=== PATIENT | male | born 1945 | race Caucasian/White ===

== ENCOUNTER 2016-07-10 11:27 | Outpatient (CLI) | payer MEDICARE | END 2016-07-10 11:30 | LOC: CARD 11:27 | PROVIDERS: ATTEND Internal Medicine Cardiovascular Disease | DX: I50.9 Heart failure, unspecified (principal) | CPT/HCPCS: G0463 ==

== ENCOUNTER 2016-09-19 01:21 | Emergency (ER) | payer MEDICARE, OTHER ==
[2016-09-19] MEDS ORDERED: CYCLOBENZAPRINE HCL 5 MG TABLET PO ONE (01:48)
[2016-09-19 01:50] VITALS: BP 161/95
--- NOTE | 2016-09-19 01:53 | ED Physician Documentation ---
General Adult - HISTORIAN Historian: patient - HPI Stated Complaint: BACK PAIN Chief Complaint: General Adult Additional Information: R low back pain x 10 days, after hoeing garden. Indicates right SI joint as site of pain. Has been taking 200-400 mg of ibuprofen at a time, but not more than 1200 mg/day. No loss bowel or bladder control, had funny feeling right lateral thigh last evening, gone now. Fells better with lying down. - ROS CONST: no problems NEURO/PSYCH: denies: difficulty walking - PAST HX Past History: other (cardiomyopathy) Allergies/Adverse Reactions: Allergies Allergy/AdvReac Type Severity Reaction Status Date / Time No Known Drug Allergies Allergy Verified 09/19/16 01:30 Home Medications: Ambulatory Orders Medication Instructions Recorded Aspirin [Aspir 81] 81 mg PO DAILY u2 10/31/15 Carvedilol [Coreg] 12.5 mg PO DAILY u2 10/31/15 Lisinopril 20Mg [Prinivil] 20 mg PO DAILY u2 10/31/15 Spironolactone 25 mg PO BID u2 10/31/15 Cyclobenzaprine HCl [Flexeril] 10 mg PO HS #14 tablet 09/19/16 traMADol HCL [Ultram] 50 mg PO Q6H PRN #15 tablet 09/19/16 - SOCIAL HX Smoking History: non-smoker Alcohol Use: none Drug Use: none - FAMILY HX Family History: No - VITAL SIGNS Vital Signs: Vital Signs Temp Pulse Resp BP Pulse Ox 97.6 F 62 22 161/95 99 09/19/16 01:48 09/19/16 01:48 09/19/16 01:48 09/19/16 01:48 09/19/16 01:48 - REVIEWED ASSESSMENTS Nursing Assessment Reviewed: Yes Vitals Reviewed: Yes ED Results Lab/Radiology - Orders Orders: ED Orders Category Date Time Status Cyclobenzaprine HCl [Flexeril] Med 09/19/16 01:48 Once 10 mg PO NOW ONE General Adult Physical Exam - PHYSICAL EXAM GENERAL APPEARANCE: mild distress (walks about room) EENT: eye inspection normal, ENT inspection normal NECK: normal inspection RESPIRATORY: no resp distress, chest non-tender, breath sounds normal CVS: reg rate & rhythm, heart sounds normal RECTAL: deferred BACK: normal inspection, no CVA tenderness, other (no vertebral tenderness) SKIN: warm/dry, normal color EXTREMITIES: normal range of motion (gait), no evidence of injury NEURO: CN's nml as tested, motor nml, sensation nml, other (reflexes 2+ throughout. Can dorsi flex 1st toes against resistance) Discharge Clincal Impression: Back pain Qualifiers: Back pain location: low back pain Chronicity: acute Back pain laterality: right Sciatica presence: unspecified whether sciatica present Qualified Code(s) : M54.5 - Low back pain Prescriptions: Cyclobenzaprine HCl [Flexeril] 10 mg PO HS #14 tablet traMADol HCL [Ultram] 50 mg PO Q6H PRN #15 tablet PRN Reason: Pain Referrals: Emmanuel Collado MD [Primary Care Provider] - 2 Days Home Medications: Ambulatory Orders Aspirin [Aspir 81] 81 mg PO DAILY u2 10/31/15 Carvedilol [Coreg] 12.5 mg PO DAILY u2 10/31/15 Lisinopril 20Mg [Prinivil] 20 mg PO DAILY u2 10/31/15 Spironolactone 25 mg PO BID u2 10/31/15 Cyclobenzaprine HCl [Flexeril] 10 mg PO HS #14 tablet 09/19/16 traMADol HCL [Ultram] 50 mg PO Q6H PRN #15 tablet 09/19/16 Condition: Good Disposition: 01 HOME, SELF-CARE Decision to Admit: NO Decision Time: 01:56
== END 2016-09-19 01:57 | disposition home or self-care (01) ==
LOC: ED 01:21
DX: M54.5 Low back pain (principal)
CPT/HCPCS: 99283

== ENCOUNTER 2016-09-21 14:01 | Outpatient (CLI) | payer MEDICARE ==
--- NOTE | 2016-09-22 05:56 | Diagnostic Imaging Report ---
NEMO JADE~ [facility] [address] [facility]. [address] [place] [address]. [id number] ~ ~ ~ ~ Report Submission Date: September 21, 2016 4:13:23 PM CDT Patient ~ Study Name: SHANDRA BLACKWELL ~ Date: September 21, 2016 2:21:16 PM CDT ~ Modality Type: CR Gender: M ~ Description: SPINE : 49 ~ Institution: [facility] Physician: NEMO JADE ~ ~ ~ ~ Lumbar spine 3 views Clinical history: Pain Technique AP lateral and coned down lumbosacral junction Findings: There are 5 lumbar vertebra with a mild levoscoliosis. Disc space narrowing is present at L4/L5 and L5/S1. There is lower lumbar spine facet osteoarthritis. Retrolisthesis of L3 on L4 is present and there is anterolistheses of L4 on L5. There is no pedicle destruction or fracture. There is no spondylolysis. Spurs arise from multiple and tear vertebral bodies Impression: Lumbar spondylosis greatest and L4/L5 and L5/S1 Mild levoscoliosis. No acute pathology ~ Electronically signed on September 21, 2016 4:13:23 PM CDT by: Lebron VINCENT
== END 2016-09-21 14:02 ==
LOC: RAD 14:01
PROVIDERS: ATTEND Family Medicine
DX: M54.5 Low back pain (principal)
CPT/HCPCS: 72100

== ENCOUNTER 2016-09-23 09:27 | Outpatient (CLI) | payer MEDICARE ==
--- NOTE | 2016-09-23 11:00 | Diagnostic Imaging Report ---
[facility] [address] [facility] [address] Report Submission Date: September 23, 2016 10:56:16 AM CDT Patient Study Name: RUSTY BLACKWELL Date: September 23, 2016 9:52:13 AM CDT Modality Type: MR Gender: M Description: MRI L SPINE W/O CONTRAST : 49 Institution: [facility] Physician: KALIE NEMO - OP MRI of the lumbar spine Clinical history: Low back pain for 2 weeks with right lower extremity radiculopathy Studies performed routinely using a sagittal T1, T2 and STIR images followed by axial T1 and T2 weighted images, study demonstrate the following: T12/L1 disc level: 1 cm curvilinear tear of the fibrous annulus and the 7:00 position . L1/L2 disc level: 2 mm generalized bulging disc . L2/L3 disc level: Right parasagittal herniated disc with extruded disc fragment inferiorly resulted in narrowing of the right lateral recess and the right neural foramina and 3 mm generalized bulging disc. L3/L4 disc level: 4 mm generalized bulging disc with facet and ligamentum flavum hypertrophy resulting in mild spinal stenosis at L3/L4 . L4/L5 disc level: Normal. L5/S1 disc level: 4 mm generalized bulging disc. 1 cm neural cyst at the S1 on the left Grade I 3 mm anterior spondylolisthesis of L4 over L3 and L5. Impression: Multilevel disc disease process as described above and mostly pronounced L2/L3 on the right side with most likely right parasagittal and trnasforaminal herniated disc extruded disc fragment. Certainly tumor is less likely , would be advisable today with sagittal and axial T1 postcontrast Electronically signed on September 23, 2016 10:56:16 AM CDT by: Rusty VINCENT
== END 2016-09-23 09:35 | disposition home or self-care (01) ==
LOC: RAD 09:27
PROVIDERS: ATTEND Family Medicine
DX: M54.5 Low back pain (principal)
CPT/HCPCS: 72148

== ENCOUNTER 2017-01-01 14:06 | Outpatient (CLI) | payer MEDICARE ==
[2017-01-01 16:31] LABS: eGFR (African) > 60; eGFR (Non-African) > 60
== END 2017-01-01 14:07 ==
LOC: CARD 14:06
PROVIDERS: ATTEND Internal Medicine Cardiovascular Disease
DX: I42.8 Other cardiomyopathies (principal); I77.819 Aortic ectasia, unspecified site; Z79.899 Other long term (current) drug therapy
CPT/HCPCS: 36415; 80048; G0463

== ENCOUNTER 2017-04-08 07:58 | Outpatient (CLI) | payer MEDICARE ==
[2017-04-08 08:21] LABS: BASOPHILS % 0.8 (0.0-1.5); MEAN CORPUSCULAR HEMOGLOBIN 30.9 pg (28.0-34.0); MEAN CORPUSCULAR VOLUME 93.7 fl (80.0-100.0); MONOCYTES % 6.2 % (0.0-11.0); NEUTROPHILS # 1.8 # k/uL (1.4-7.7)
[2017-04-08 08:52] LABS: eGFR (African) > 60; eGFR (Non-African) > 60
== END 2017-04-08 08:00 ==
LOC: LAB 07:58
PROVIDERS: ATTEND Family Medicine
DX: E78.00 Pure hypercholesterolemia, unspecified (principal); I10 Essential (primary) hypertension; N40.1 Benign prostatic hyperplasia with lower urinary tract symptoms
CPT/HCPCS: 36415; 80053; 80061; 84153; 85025

== ENCOUNTER 2017-04-15 11:14 | Day surgery (SDC) | payer MEDICARE ==
[~2017-04-15 11:14] MED LIST: LACTATED RINGERS 1,000 ML IV.SOLN IV ONE; LIDOCAINE HCL/PF 2% 100 MG/5 ML VIAL IJ ONE; PROPOFOL 500 MG/50 ML VIAL IV ONE; SALINE FLUSH 10 ML DISP.SYRIN IVF ONE
--- NOTE | 2017-04-15 14:09 | GI Report ---
REFERRING PHYSICIAN: Dr. Emmanuel Collado APPRAISER ART: Kam Savage MD PROCEDURE MEDICATION: Propofol as per anesthesia. INDICATIONS: This 71-year-old man is referred for a screening. This is his first colonoscopy. He denies changes in bowel habits or blood in the stool. PROCEDURE PERFORMED: Colonoscopy and polypectomy. DESCRIPTION OF PROCEDURE: An Olympus video colonoscope was advanced into the rectum and slowly advanced all the way to the cecum. A slightly atonic redundant colon. The appendiceal orifice and ileocecal valve were normal. On slow withdrawal, the cecum, ascending colon, and transverse colon had no obvious intraluminal lesions noted. The descending colon had some redundancy. Sigmoid colon had a few diverticula. There was about a 3 to 4 mm polyp removed in the sigmoid at 20 cm. Retroflexion of the rectum was normal. Patient tolerated the procedure well. FINDINGS: 1. A 3 to 4 mm polyp in the sigmoid removed. 2. An atonic redundant colon. 3. Diverticular disease. RECOMMENDATIONS: 1. A high-fiber diet. 2. I recommend re-looking at his colon in 5 years unless there is some interval change. cc: Dr. Emmanuel VINCENT
== END 2017-04-15 11:15 ==
LOC: OPSURG 11:14
PROVIDERS: ATTEND Internal Medicine Gastroenterology
DX: Z12.11 Encounter for screening for malignant neoplasm of colon (principal); D12.5 Benign neoplasm of sigmoid colon; D12.7 Benign neoplasm of rectosigmoid junction; K57.30 Diverticulosis of large intestine without perforation or abscess without bleeding
CPT/HCPCS: 45385; 88305; 93005; J2001; J2704; J7120; S1016

== ENCOUNTER 2017-08-30 11:34 | Outpatient (CLI) | payer MEDICARE, OTHER | END 2017-08-30 11:35 | LOC: LAB 11:34 | PROVIDERS: ATTEND Family Medicine | DX: I77.6 Arteritis, unspecified (principal); Z13.820 Encounter for screening for osteoporosis | CPT/HCPCS: 36415; 85651; 86038 ==

== ENCOUNTER 2017-09-04 11:45 | Outpatient (CLI) | payer MEDICARE, OTHER | END 2017-09-04 11:46 | LOC: RAD 11:45 | PROVIDERS: ATTEND Family Medicine | DX: M85.88 Other specified disorders of bone density and structure, other site (principal); M85.9 Disorder of bone density and structure, unspecified; Z13.820 Encounter for screening for osteoporosis | CPT/HCPCS: 77080 ==

== ENCOUNTER 2017-12-31 14:36 | Outpatient (CLI) | payer MEDICARE, OTHER | END 2017-12-31 14:38 | LOC: CARD 14:36 | PROVIDERS: ATTEND Internal Medicine Cardiovascular Disease | DX: I42.9 Cardiomyopathy, unspecified (principal); Z79.899 Other long term (current) drug therapy; I77.810 Thoracic aortic ectasia | CPT/HCPCS: G0463 ==

== ENCOUNTER 2018-07-30 15:16 | Outpatient (CLI) | payer MEDICARE, OTHER ==
--- NOTE | 2018-07-30 20:44 | Diagnostic Imaging Report ---
LEONEL JADE [facility] [address] [facility], [facility] [address] Report Submission Date: Jul 30, 2018 4:00:24 PM CDT Patient Study Name: SHANDRA BLACKWELL Date: Jul 30, 2018 3:29:25 PM CDT Modality Type: DX Gender: M Description: C SPINE 2 OR 3 VIEWS : 49 Institution: [facility] Physician: LEONEL JADE Examination: Cervical spine History: NECK PAIN INTO SHOULDER, NO KNOWN INJURY, RT SIDE WORSE THAN LEFT Comparison exams: None available Findings: 3 views of the cervical spine demonstrates osteopenia. Mid cervical degenerative spurring and disc space narrowing. No anterior compression. No abnormal listhesis. No odontoid abnormality. No prevertebral abnormality Impression: Osteopenia and degenerative changes. No acute appearing osseous abnormality. If patient is experiencing neurologic symptoms, consider obtaining MRI to further evaluate. Electronically signed on Jul 30, 2018 4:00:24 PM CDT by: Josep VINCENT
== END 2018-07-30 15:18 ==
LOC: RAD 15:16
PROVIDERS: ATTEND Family Medicine
DX: M85.88 Other specified disorders of bone density and structure, other site (principal); M47.22 Other spondylosis with radiculopathy, cervical region
CPT/HCPCS: 72040